=== PATIENT | male | born 1995 | race Caucasian/White ===

== ENCOUNTER 2018-04-25 10:46 | Emergency (ER) | payer BC, OTHER ==
[~2018-04-25] VITALS: Ht 182.9 cm; Wt 108.9 kg
[2018-04-25 10:56] VITALS: Ht 182.9 cm; Wt 108.9 kg
[2018-04-25 12:58] VITALS: BP 127/82
== END 2018-04-25 12:58 | disposition home or self-care (01) ==
LOC: ED 10:46
DX: S83.91XA Sprain of unspecified site of right knee, initial encounter (principal); S80.211A Abrasion, right knee, initial encounter; F90.9 Attention-deficit hyperactivity disorder, unspecified type; W01.0XXA Fall on same level from slipping, tripping and stumbling without subsequent striking against object, initial encounter; Y93.66 Activity, soccer; Y92.322 Soccer field as the place of occurrence of the external cause; Y99.8 Other external cause status
CPT/HCPCS: Q0092

== ENCOUNTER 2019-03-08 00:30 | Inpatient (IN) | payer BC, OTHER ==
[~2019-03-08] VITALS: Ht 182.9 cm; Wt 108.9 kg
[2019-03-08 00:42] VITALS: Ht 182.9 cm; Wt 108.9 kg
[2019-03-08 02:47] LABS: BASOPHIL % 0.2 % (0-2); PLATELET COUNT 234 x10^3mcL (130-400)
[2019-03-08 02:49] LABS: CALCIUM 8.5 mg/dL (8.5-10.1); CHLORIDE SERUM 101 mmol/L (98-107); CREATININE SERUM 0.8 mg/dL (0.7-1.3); GFR1 > 60 mL/min; GLUCOSE SERUM 113 mg/dL (74-106); POTASSIUM SERUM 3.7 mmol/L (3.5-5.1); SODIUM SERUM 137 mmol/L (136-145)
[2019-03-08 03:02] LABS: ALKALINE PHOSPHATASE 74 U/L (46-116); ALT/SGPT 24 U/L (16-63); AMYLASE 41 U/L (25-115); AST/SGOT 14 U/L (15-37); BILIRUBIN TOTAL 0.6 mg/dL (0.20-1.00); LIPASE 90 IU/L (73-393); TOTAL PROTEIN, SERUM 7.5 g/dL (6.4-8.2)
[2019-03-08 06:31] VITALS: BP 153/73
[2019-03-08 07:40] VITALS: BP 115/64
[2019-03-08 08:49] LABS: BASOPHIL % 0.2 % (0-2); PLATELET COUNT 250 x10^3mcL (130-400)
[2019-03-08 08:54] LABS: CALCIUM 8.9 mg/dL (8.5-10.1); CHLORIDE SERUM 102 mmol/L (98-107); CREATININE SERUM 0.9 mg/dL (0.7-1.3); GFR1 > 60 mL/min; GLUCOSE SERUM 111 mg/dL (74-106); MAGNESIUM 1.8 mg/dL (1.8-2.4); PHOSPHOROUS 4.9 mg/dL (2.5-4.9); POTASSIUM SERUM 4.1 mmol/L (3.5-5.1); SODIUM SERUM 139 mmol/L (136-145)
[2019-03-08 11:48] VITALS: BP 128/78
[2019-03-08 17:20] VITALS: BP 122/58
[2019-03-08 18:11] LABS: microscopic required? NO
[2019-03-08 18:39] LABS: urine erythrocyte NEGATIVE (NEGATIVE)
[2019-03-08 20:18] VITALS: BP 132/75
[2019-03-09 05:22] VITALS: BP 152/72
[2019-03-09 06:30] LABS: BASOPHIL % 0.3 % (0-2); PLATELET COUNT 220 x10^3mcL (130-400); RED CELL DISTRIBUTION WIDTH 12.9 % (11.5-14.5)
[2019-03-09 07:01] LABS: CALCIUM 9.1 mg/dL (8.5-10.1); CARBON DIOXIDE 30.8 mmol/L (21-32); CHLORIDE SERUM 101 mmol/L (98-107); GFR1 > 60 mL/min; GLUCOSE SERUM 98 mg/dL (74-106); POTASSIUM SERUM 4.1 mmol/L (3.5-5.1); SODIUM SERUM 141 mmol/L (136-145)
[2019-03-09 09:10] VITALS: BP 108/78
[2019-03-09] MEDS ORDERED: MIRALAX17 GM/Dose PO (12:57)
[2019-03-09] MEDS ORDERED: FLE10 PO (12:57)
[2019-03-09 13:24] VITALS: BP 104/68
== END 2019-03-09 14:41 | disposition home or self-care (01) | DRG 854 ==
LOC: ED 00:30 → MU 04:19
PROVIDERS: Emergency Medicine; Surgery; ADMIT Family Medicine
PROC: 0DTJ4ZZ Resection of Appendix, Percutaneous Endoscopic Approach (ICD-10-PCS; principal; 2019-03-08 10:30)
DX: A41.9 Sepsis, unspecified organism (principal); K35.80 Unspecified acute appendicitis; J45.909 Unspecified asthma, uncomplicated; F90.9 Attention-deficit hyperactivity disorder, unspecified type; Z79.899 Other long term (current) drug therapy
CPT/HCPCS: G0378; J1170; J1885; J2250; J2270; J2405; J2543; J2765; J3010; J3490; Q9967